=== PATIENT | female | born 1970 | race African-American/Black ===

== ENCOUNTER 2021-05-31 14:07 | Inpatient (IN) | payer OTHER ==
[2021-05-31 15:10] VITALS: BMI 33.6
[2021-05-31] MEDS ORDERED: LOPERAMIDE HCL 2 MG CAPSULE PO PRN (15:48)
[2021-05-31] MEDS ORDERED: P-EPHED 60MG/TRIPROLIDI 2.5MG TABLET PO PRN (15:48)
[2021-05-31] MEDS ORDERED: MAGNESIUM HYDROX 2400MG/30ML ORAL SUSPENSION 30 ML CUP PO PRN (15:48)
[2021-05-31] MEDS ORDERED: MAG HYDROX/AL HYDROX/SIMETH 30 ML UNIT-DOSE CUP PO PRN (15:48)
[2021-05-31] MEDS ORDERED: guaiFENesin 200 MG/10 ML 10 ML UNIT-DOSE CUPS PO PRN (15:48)
[2021-05-31] MEDS ORDERED: NICOTINE 10 MG CARTRIDGE (INHALER) IH PRN (15:48)
[2021-05-31] MEDS ORDERED: MAGNESIUM CITRATE 300 ML BOTTLE PO PRN (15:48)
[2021-05-31] MEDS ORDERED: hydrOXYzine PAMOATE 25 MG CAPSULE (FP) PO SCH (18:00)
[2021-05-31] MEDS ORDERED: ALBUTEROL SO4 HFA INHALER IH PRN (18:15)
[2021-05-31] MEDS ORDERED: THIAMINE HCL 100 MG TABLET (FP) PO SCH (22:00)
[2021-05-31] MEDS ORDERED: traZODone HCL 50 MG TABLET (FP) PO SCH (22:00)
[2021-05-31] MEDS ORDERED: PATIENT'S OWN MEDICATION (NON-FORMULARY) (Naproxen/Esomeprazole Mag [Naproxen-Esomepraz Dr PO SCH (22:00)
[2021-05-31] MEDS: MELATONIN 5 MG TABLETS PO SCH (22:27)
[2021-05-31] MEDS: THIAMINE HCL 100 MG TABLET (FP) PO SCH (22:27)
[2021-05-31] MEDS: GABAPENTIN 300 MG CAPSULE PO SCH (22:27)
[2021-05-31] MEDS: PANTOPRAZOLE 20 MG TABLET PO SCH (22:27)
[2021-05-31] MEDS: ATORVASTATIN CA 10 MG TABLET (FP) PO SCH (22:27)
[2021-05-31] MEDS: busPIRone HCL 10 MG TABLET (FP) PO SCH (22:49)
[2021-06-01] MEDS: GABAPENTIN 300 MG CAPSULE PO SCH ×3 (06:13→22:46)
[2021-06-01] MEDS: amLODIPine BESYLATE 10 MG TABLET (FP) PO SCH (09:40)
[2021-06-01] MEDS: IBUPROFEN 400 MG TABLET (FP) PO PRN ×2 (09:40→17:54)
[2021-06-01] MEDS: CITALOPRAM HYDROBROMIDE 20 MG TABLET PO SCH (09:40)
[2021-06-01] MEDS: PANTOPRAZOLE 20 MG TABLET PO SCH ×2 (09:40→22:46)
[2021-06-01] MEDS: LISINOPRIL 20 MG TABLET PO SCH (09:40)
[2021-06-01] MEDS ORDERED: NICOTINE 7 MG/24 HOURS TOPICAL PATCH TD SCH (10:00)
[2021-06-01] MEDS: PRENATAL VITAMINS W/ FOLIC ACID TABLET (FP) PO SCH (10:12)
[2021-06-01 10:25] LABS: HEMATOCRIT 39.4 % (32.4-45.2); HEMOGLOBIN 12.9 GM/dL (10.7-15.3); MCH 30.8 pg (25.7-33.7); MCHC 32.6 g/dl (32.0-36.0); MEAN CELL VOLUME 94.3 fl (80-96); MEAN PLT VOLUME 9.8 fl (7.5-11.1); PLATELET COUNT 232 10^3/uL (134-434); RBC 4.18 M/mm3 (3.60-5.2); WHITE BLOOD COUNT 6.8 K/mm3 (4.0-10.0)
[2021-06-01 10:40] LABS: ALBUMIN 3.4 g/dl (3.4-5.0); BLOOD UREA NITROGEN 15.9 mg/dL (7-18)
[2021-06-01 10:43] LABS: CALCIUM 9.1 mg/dL (8.5-10.1)
[2021-06-01 10:45] LABS: BILIRUBIN,TOTAL 0.3 mg/dL (0.2-1); CREATININE 0.8 mg/dL (0.55-1.3)
[2021-06-01 10:48] LABS: TOT PROT 6.4 g/dl (6.4-8.2)
[2021-06-01 11:46] LABS: SYPHILIS W/ RPR CONF REACTIVE (NONREACTIVE)
[2021-06-01] MEDS ORDERED: PNEUMOCOCCAL 23 VACCINE 0.5 ML VIAL IM ONE (12:00)
[2021-06-01] MEDS ORDERED: FLU VACC QS2021-22(6MOS UP)/PF 60 MCG/0.5 ML SYRINGE IM ONE (12:00)
[2021-06-01] MEDS ORDERED: PNEUMOC 13-VAL CONJ-DIP CRM/PF 0.5 ML DISP.SYRIN IM ONE (12:00)
[2021-06-01] MEDS: busPIRone HCL 10 MG TABLET (FP) PO SCH (13:02)
[2021-06-01] MEDS: ACETAMINOPHEN 325 MG TABLET (FP) PO PRN (13:04)
[2021-06-01] MEDS ORDERED: traZODone HCL 50 MG TABLET (FP) PO SCH ×2 (18:47→22:00)
[2021-06-01] MEDS: THIAMINE HCL 100 MG TABLET (FP) PO SCH (22:46)
[2021-06-01] MEDS: ATORVASTATIN CA 10 MG TABLET (FP) PO SCH (22:46)
[2021-06-01] MEDS: MELATONIN 5 MG TABLETS PO SCH (22:46)
[2021-06-02] MEDS: GABAPENTIN 300 MG CAPSULE PO SCH ×2 (06:08→14:00)
[2021-06-02] MEDS ORDERED: ARIPiprazole 10 MG TABLET PO SCH (10:00)
[2021-06-02] MEDS: PANTOPRAZOLE 20 MG TABLET PO SCH (10:08)
[2021-06-02] MEDS: LISINOPRIL 20 MG TABLET PO SCH (10:08)
[2021-06-02] MEDS: PRENATAL VITAMINS W/ FOLIC ACID TABLET (FP) PO SCH (10:08)
[2021-06-02] MEDS: amLODIPine BESYLATE 10 MG TABLET (FP) PO SCH (10:08)
[2021-06-02] MEDS: CITALOPRAM HYDROBROMIDE 20 MG TABLET PO SCH (10:08)
[2021-06-02] MEDS: ACETAMINOPHEN 325 MG TABLET (FP) PO PRN (14:01)
[2021-06-02 14:42] VITALS: BP 127/60; PULSE 80; TEMP 97.7
== END 2021-06-02 16:45 | disposition home or self-care (01) | DRG 897 ==
LOC: YASAS 14:07 → Y6N 20:12
PROVIDERS: ADMIT Allergy & Immunology; ATTEND Allergy & Immunology
PROC: HZ2ZZZZ Detoxification Services for Substance Abuse Treatment (ICD-10-PCS; principal; 2021-05-31)
DX: F10.230 Alcohol dependence with withdrawal, uncomplicated (principal); F14.20 Cocaine dependence, uncomplicated; F19.282 Other psychoactive substance dependence with psychoactive substance-induced sleep disorder; F12.20 Cannabis dependence, uncomplicated; F17.210 Nicotine dependence, cigarettes, uncomplicated; F25.9 Schizoaffective disorder, unspecified; F41.8 Other specified anxiety disorders; F32.A Depression, unspecified; E78.5 Hyperlipidemia, unspecified; I10 Essential (primary) hypertension; J45.20 Mild intermittent asthma, uncomplicated; F31.9 Bipolar disorder, unspecified; F60.9 Personality disorder, unspecified; Z62.810 Personal history of physical and sexual abuse in childhood; Z86.11 Personal history of tuberculosis; Z99.89 Dependence on other enabling machines and devices; Z91.51 Personal history of suicidal behavior
CPT/HCPCS: 36415; 71045-TC-FY; 80053; 85027; 86593; 86780; 86803; 90686; 90732; C9803-CS; G0008; G0009; U0003; U0005